=== PATIENT | female | born 1990 | race Caucasian/White ===

== ENCOUNTER 2017-05-23 18:18 | Emergency (ER) | payer OTHER ==
[2017-05-23 18:30] VITALS: BP 133/80; PULSE 80; TEMP 98.4; BMI 37.2
[2017-05-23] MEDS ORDERED: AMOXICILLIN 500 MG CAPSULE (FP) PO ONE (18:45)
--- NOTE | 2017-05-23 18:45 | PDOC ---
History of Present Illness - General Chief Complaint: Ear Problem Stated Complaint: EAR PAIN Time Seen by Provider: 05/23/17 18:38 History Source: Patient Exam Limitations: No Limitations - History of Present Illness Initial Comments: 05/23/17 18:56 27-year-old female with no medical history presents to the emergency department complaining of a right earache since yesterday but denies headache, dizziness, lightheadedness, fever/chills, nausea/vomiting, sore throat, rhinorrhea, difficulty hearing, difficulty swallowing, chest pain, shortness of breath, abdominal pains. Pain is increased with auricular movement and alleviated minimally with Motrin. Timing/Duration: 24 hours Associated Symptoms: reports: denies symptoms Past History - Past Medical History Allergies/Adverse Reactions: Allergies Allergy/AdvReac Type Severity Reaction Status Date / Time No Known Allergies Allergy Verified 05/23/17 18:28 Home Medications: Ambulatory Orders Amoxicillin - [Amoxicillin 875mg Tablet -] 875 mg PO BID #14 tab 05/23/17 Asthma: No Cancer: No Cardiac Disorders: No Diabetes: No HTN: No Seizures: No Thyroid Disease: No Other medical history: denies. - Surgical History Abdominal Surgery: Yes - Reproductive History (#): 3 Para: 2 Therapeutic (s) & number: No Spontaneous : 0 - Immunization History Immunization Up to Date: Yes - Suicide/Smoking/Psychosocial Hx Smoking Status: No Smoking History: Never smoked Have you smoked in the past 12 months: No Number of Cigarettes Smoked Daily: 0 Hx Alcohol Use: No Drug/Substance Use Hx: No Substance Use Type: None Hx Substance Use Treatment: No Review of Systems - Review of Systems Able to Perform ROS?: Yes Comments:: 05/23/17 18:41 CONSTITUTIONAL: Absent: fever, chills, diaphoresis, generalized weakness, malaise, loss of appetite HEENT: right earpain Absent: rhinorrhea, nasal congestion, throat pain, throat swelling, difficulty swallowing, mouth swelling, ear pain, eye pain, visual Changes SKIN: Absent: rash, itching, pallor Is the patient limited German proficient: No *Physical Exam - Vital Signs Last Vital Signs Temp Pulse Resp BP Pulse Ox 98.4 F 80 18 133/80 100 05/23/17 18:29 05/23/17 18:29 05/23/17 18:29 05/23/17 18:29 05/23/17 18:29 - Physical Exam Comments: 05/23/17 18:42 GENERAL: Well developed, well nourished. Awake and alert. No acute distress. HEENT: right: TM bulging/erythema Normocephalic, atraumatic. PERRLA, EOMI. No conjunctival pallor. Sclera are non- icteric. Moist mucous membranes. Oropharynx is clear. NECK: Supple. Full ROM. No JVD. Carotid pulses 2+ and symmetric, without bruits. No thyromegaly. No lymphadenopathy. SKIN: Warm and dry. Normal capillary refill. No rashes. No jaundice. *DC/Admit/Observation/Transfer Diagnosis at time of Disposition: Otitis media Qualifiers: Otitis media type: other nonsuppurative Chronicity: unspecified Laterality: right Qualified Code(s): H65.91 - Unspecified nonsuppurative otitis media, right ear - Discharge Dispostion Disposition: HOME Condition at time of disposition: Stable Admit: No - Prescriptions Prescriptions: Amoxicillin - [Amoxicillin 875mg Tablet -] 875 mg PO BID #14 tab - Referrals Referrals: Gordon Lang MD [Staff Physician] - - Patient Instructions Printed Discharge Instructions: Middle Ear Infection Additional Instructions: Take tylenol/motrin as needed for pain Return to the ER for severe/persistent/worsening symptoms
[2017-05-23] MEDS ORDERED: AMOXICILLIN 250 MG CAPSULE ONE (19:12)
== END 2017-05-23 19:15 | disposition home or self-care (01) ==
LOC: JERFT 18:18
DX: H65.91 Unspecified nonsuppurative otitis media, right ear (principal)
CPT/HCPCS: 99281-25

== ENCOUNTER 2018-12-17 10:30 | Emergency (ER) | payer OTHER ==
[2018-12-17 10:41] VITALS: BP 134/68; PULSE 84; TEMP 98.5; BMI 33.3
[2018-12-17] MEDS ORDERED: KETOROLAC TROMETHAMINE 60 MG/2 ML VIAL IM ONE (10:50)
[2018-12-17] MEDS ORDERED: ACETAMINOPHEN 500 MG TABLET (FP) PO ONE (10:50)
[2018-12-17] MEDS ORDERED: LIDOCAINE 5% TOPICAL PATCH TP ONE (10:50)
--- NOTE | 2018-12-17 10:50 | PDOC ---
History of Present Illness - General Chief Complaint: Back Pain Stated Complaint: BACK PAIN Time Seen by Provider: 12/17/18 10:37 History Source: Patient Exam Limitations: No Limitations Past History - Travel Traveled outside of the country in the last 30 days: No Close contact w/someone who was outside of country & ill: No - Past Medical History Allergies/Adverse Reactions: Allergies Allergy/AdvReac Type Severity Reaction Status Date / Time No Known Allergies Allergy Verified 05/23/17 18:28 Home Medications: Ambulatory Orders Cyclobenzaprine HCl [Flexeril -] 10 mg PO HS #10 tablet 12/17/18 Ibuprofen 800 mg PO TID #30 tablet 12/17/18 Asthma: No Cancer: No Cardiac Disorders: No COPD: No Diabetes: No HTN: No Seizures: No Thyroid Disease: No - Surgical History Abdominal Surgery: Yes - Reproductive History (#): 3 Para: 2 Therapeutic (s) & number: No Spontaneous : 0 - Immunization History Immunization Up to Date: Yes - Suicide/Smoking/Psychosocial Hx Smoking Status: No Smoking History: Unknown if ever smoked Have you smoked in the past 12 months: No Number of Cigarettes Smoked Daily: 0 Information on smoking cessation initiated: No Hx Alcohol Use: No Drug/Substance Use Hx: No Substance Use Type: None Hx Substance Use Treatment: No Review of Systems - Review of Systems Able to Perform ROS?: Yes Comments:: 12/17/18 10:43 CONSTITUTIONAL: Absent: fever, chills, diaphoresis, generalized weakness, malaise, loss of appetite GASTROINTESTINAL: Absent: abdominal pain, abdominal distension, nausea, vomiting, diarrhea, constipation, melena, hematochezia GENITOURINARY: Absent: dysuria, frequency, urgency, hesitancy, hematuria, flank pain, genital pain MUSCULOSKELETAL: Present: low back pain Absent: arthralgia, joint swelling SKIN: Absent: rash, itching, pallor NEUROLOGIC: Absent: headache, focal weakness or paresthesias, dizziness, unsteady gait, seizure, mental status changes, bladder or bowel incontinence PSYCHIATRIC: Absent: anxiety, depression, suicidal or homicidal ideation, hallucinations. Is the patient limited Turkmen proficient: No *Physical Exam - Vital Signs Last Vital Signs Temp Pulse Resp BP Pulse Ox 98.5 F 84 18 134/68 100 12/17/18 10:36 12/17/18 10:36 12/17/18 10:36 12/17/18 10:36 12/17/18 10:36 - Physical Exam Comments: 12/17/18 10:43 GENERAL: Well developed, well nourished. Awake and alert. No acute distress. NECK: Supple. Full ROM. No JVD. Carotid pulses 2+ and symmetric, without bruits. No thyromegaly. No lymphadenopathy. MUSCULOSKELETAL TTP of the b/l paraspinous muscles, L3-S1, with palpable knot consistent with muscle spasm. (+) straight leg raise b/l. (+) midline tenderness -No trauma, or fever. No saddle anesthesia or bladder/bowel incontinence. No CVA tenderness. Normal range of motion at all joints. No bony deformities or tenderness. No CVA tenderness. EXTREMITIES: No cyanosis. No clubbing. No edema. No calf tenderness. SKIN: Warm and dry. Normal capillary refill. No rashes. No jaundice. NEUROLOGICAL: Alert, awake, appropriate. Cranial nerves 2-12 intact. No deficits to light touch and temperature in face, upper extremities and lower extremities. No motor deficits in the in face, upper extremities and lower extremities. Normoreflexic in the upper and lower extremities. Normal speech. Toes are down- going bilaterally. Gait is normal without ataxia. Medical Decision Making - Medical Decision Making 12/17/18 10:53 the patient is a 28-year-old female with no past medical history who presents to the ER today with low back pain for 2 days. Patient states that she woke up with the back pain and it is progressively gotten worse. She states that she is only comfortable when standing. She states that the pain goes down her legs. She is taking Motrin with some relief of her symptoms. Denies heavy lifting or trauma. Patient is currently on her menstrual cycle. Denies fevers , chills, numbness and tingling/weakness to the affected extremities, saddle anesthesia and bladder bowel incontinence. A/P: Low back pain -Pt with TTP of the b/l paraspinous muscles, L3-S1, with palpable knot consistent with muscle spasm. (+) straight leg raise b/l. (+) midline tenderness -No trauma, or fever. No saddle anesthesia or bladder/bowel incontinence. No CVA tenderness. Pt currently on her menustral cycle. Not concerned for at this time -Pt is neurologically intact on exam with no focal findings. -Toradol given with relief of symptoms -DC home. Pt to f/u with her PCP. Ortho referral given. -I discussed the physical exam findings, ancillary test results and final diagnoses with the patient. I answered all of the patient's questions. The patient was satisfied with the care received and felt comfortable with the discharge plan and treatment plan. The Patient agrees to follow up with the primary care physician/specialist within 24-72 hours. Return precautions were given. *DC/Admit/Observation/Transfer Diagnosis at time of Disposition: Low back pain Qualifiers: Chronicity: acute Back pain laterality: bilateral Sciatica presence: without sciatica Qualified Code(s): M54.5 - Low back pain - Discharge Dispostion Disposition: HOME Condition at time of disposition: Stable Decision to Admit order: No - Referrals Referrals: Izzy Marquez [Primary Care Provider] - Lonnie Freedman MD [Staff Physician] - - Patient Instructions Printed Discharge Instructions: DI for Low Back Pain Additional Instructions: You were evaluated for your low back pain today. It is most likely due to a muscle spasm Please take the Motrin as directed Take the Flexiril every 8 hours the first day. Then take the medication at night only. Do not drink or drive after taking this medication as it may make you drowsy. You may apply warm compresses to the area. Please follow up with orthopedics if your symptoms do not improve this week; a referral has been provided to you Return to the ER for worsening pain despite treatment, numbness/weakness down the extremities, changes in the way you walk, numbness/tingling to the groin, if you have bladder/bowel incontinence, or if you have any changes in your symptoms. - Post Discharge Activity Forms/Work/School Notes: Back to Work
[2018-12-17] MEDS ORDERED: KETOROLAC TROMETHAMINE 60 MG/2 ML VIAL ONE (10:53)
[2018-12-17] MEDS ORDERED: LIDOCAINE 5% TOPICAL PATCH ONE (10:53)
[2018-12-17] MEDS ORDERED: ACETAMINOPHEN 500 MG TABLET (FP) ONE (10:54)
[2018-12-17] MEDS ORDERED: LIDOCAINE PATCH REMOVAL MC SCH (22:00)
== END 2018-12-17 11:39 | disposition home or self-care (01) ==
LOC: JERFT 10:30
PROC: 3E0233Z Introduction of Anti-inflammatory into Muscle, Percutaneous Approach (ICD-10-PCS; principal; 2018-12-17)
DX: M54.5 Low back pain (principal); M62.830 Muscle spasm of back
CPT/HCPCS: 99281-25

== ENCOUNTER 2019-01-17 00:41 | Emergency (ER) | payer OTHER ==
[2019-01-17 01:08] VITALS: TEMP 97.8; BMI 35.4
--- NOTE | 2019-01-17 01:27 | PDOC ---
History of Present Illness <Lilia Whitman - Last Filed: 01/17/19 04:01> <Alka Lara - Last Filed: 01/17/19 08:05> - General Chief Complaint: Back Pain Stated Complaint: LOWER BACK PAIN AND BLOOD IN URINE Time Seen by Provider: 01/17/19 01:26 Past History <Lilia Whitman - Last Filed: 01/17/19 04:01> - Past Medical History Asthma: No Cancer: No Cardiac Disorders: No COPD: No Diabetes: No HTN: No Seizures: No Thyroid Disease: No - Surgical History Abdominal Surgery: Yes - Reproductive History (#): 3 Para: 2 Therapeutic (s) & number: No Spontaneous : 0 - Immunization History Immunization Up to Date: Yes - Suicide/Smoking/Psychosocial Hx Smoking Status: No Smoking History: Never smoked Have you smoked in the past 12 months: No Number of Cigarettes Smoked Daily: 0 Information on smoking cessation initiated: No Hx Alcohol Use: No Drug/Substance Use Hx: No Substance Use Type: None Hx Substance Use Treatment: No <Alka Lara - Last Filed: 01/17/19 08:05> - Past Medical History Allergies/Adverse Reactions: Allergies Allergy/AdvReac Type Severity Reaction Status Date / Time No Known Allergies Allergy Verified 01/17/19 01:08 Home Medications: Ambulatory Orders Cyclobenzaprine HCl [Flexeril -] 10 mg PO HS #10 tablet 12/17/18 Ibuprofen 800 mg PO TID #30 tablet 12/17/18 *Physical Exam - Vital Signs Last Vital Signs Temp Pulse Resp BP Pulse Ox 97.8 F 72 16 125/68 97 01/17/19 00:41 01/17/19 03:05 01/17/19 03:05 01/17/19 03:05 01/17/19 03:05 <Lilia Whitman - Last Filed: 01/17/19 04:01> - Vital Signs Last Vital Signs Temp Pulse Resp BP Pulse Ox 97.8 F 98 H 19 126/79 100 01/17/19 00:41 01/17/19 00:41 01/17/19 00:41 01/17/19 00:41 01/17/19 00:41 <Alka Lara - Last Filed: 01/17/19 08:05> ED Treatment Course - LABORATORY CBC & Chemistry Diagram: 01/17/19 02:05 01/17/19 02:05 - ADDITIONAL ORDERS Additional order review: Laboratory Results 01/17/19 01/17/19 01/17/19 02:09 02:05 02:05 Sodium 141 Potassium 4.1 Chloride 106 Carbon Dioxide 28 Anion Gap 8 BUN 14.5 Creatinine 1.1 Est GFR (CKD-EPI)AfAm 78.57 Est GFR (CKD-EPI)NonAf 67.79 Random Glucose 96 Calcium 9.1 Total Bilirubin 0.1 L AST 21 ALT 21 Alkaline Phosphatase 75 Total Protein 8.0 Albumin 3.9 Lipase 118 Urine Color Yellow Urine Appearance Clear Urine pH 7.0 Ur Specific Dickens 1.022 Urine Protein Negative Urine Glucose (UA) Negative Urine Ketones Negative Urine Blood Trace Urine Nitrite Negative Urine Bilirubin Negative Urine Urobilinogen 0.2 Ur Leukocyte Esterase Trace Urine WBC (Auto) 2 Urine RBC (Auto) 2 Urine Casts (Auto) 2 U Epithel Cells (Auto) 1.0 Urine Bacteria (Auto) 38.1 Urine HCG, Qual Negative Stool Occult Blood Negative 01/17/19 02:05 RBC 4.56 MCV 83.3 MCHC 33.2 RDW 15.0 MPV 7.7 Neutrophils % 57.3 Lymphocytes % 33.4 Monocytes % 7.3 Eosinophils % 1.0 Basophils % 1.0 - Medications Given in the ED: ED Medications Discontinued Medications Generic Name Dose Route Start Last Admin Trade Name Freq PRN Reason Stop Dose Admin Acetaminophen 1,000 mg 01/17/19 01:58 01/17/19 02:32 Ofirmev Injection - IVPB 01/17/19 01:59 1,000 mg ONCE ONE Administration Sodium Chloride 1,000 mls @ 1,000 mls/hr 01/17/19 01:58 01/17/19 02:25 Normal Saline - IV 01/17/19 02:57 1,000 mls/hr ASDIR STA Administration Ondansetron HCl 4 mg 01/17/19 01:58 01/17/19 02:25 Zofran Injection IVPUSH 01/17/19 01:59 4 mg ONCE ONE Administration <Lilia Whitman - Last Filed: 01/17/19 04:01> - LABORATORY CBC & Chemistry Diagram: 01/17/19 02:05 01/17/19 02:05 <Alka Lara - Last Filed: 01/17/19 08:05> Medical Decision Making - Medical Decision Making 28yo F with PMH of R. ovarian cyst presenting with multiple complaints including dysuria, hematuria, black stool, blood in her stool, abdominal pain, R. flank pain, and dizziness. Patient has had intermittent dysuria and hematuria over the past several months. History of two c-sections Had three bowel movements today Never had a colonoscopy. Abdominal pain x 1 week is described as "sharp" and rated 8/10. R. flank pain is rated 10/10; patient has had this pain for years but it is worse now. Last saw her shuttler car a year ago No fevers, chills, chest pain, or shortness of breath PCP: Dr. Marquez Labs 1L NS for tachycardia, 4mg zofran for nausea, 1g Ofirmev for pain 01/17/19 02:17 Patient feeling better 01/17/19 04:08 01/17/19 08:04 <Alka Lara - Last Filed: 01/17/19 08:05> *DC/Admit/Observation/Transfer - Discharge Dispostion Decision to Admit order: No <Lilia Whitman - Last Filed: 01/17/19 04:01> <Alka Lara - Last Filed: 01/17/19 08:05> Diagnosis at time of Disposition: Irregular menses Abdominal pain Qualifiers: Abdominal location: right lower quadrant Qualified Code(s): R10.31 - Right lower quadrant pain - Discharge Dispostion Disposition: HOME Condition at time of disposition: Stable - Referrals Referrals: Izzy Marquez [Primary Care Provider] - Ash Lucas MD [Staff Physician] - - Patient Instructions Printed Discharge Instructions: DI for Abdominal Pain-Adult Additional Instructions: You came into the ED for abdominal pain, pain when you urinate, hematuria, and flank pain. Labs were within normal limits. Follow-up with your shuttler car specialist and primary care doctor this week to discuss this ED visit and to further evaluate your symptoms. Call on Friday and make appointments. Your workup is not complete until you do so. You can take [id number] tylenol or motrin for pain. Follow the instructions on the medication bottle. Immediate medical attention is required if you have: you develop worsening pain , high fevers, persistent nausea, vomiting, or any new or concerning symptoms. If you think you are having an emergency, call for emergency medical services or present to the emergency department right away. Print Language: MAORI - Post Discharge Activity
[2019-01-17] MEDS ORDERED: ACETAMINOPHEN 1000 MG/100 ML VIAL (NON FORMULARY) IVPB ONE (01:58)
[2019-01-17] MEDS ORDERED: ONDANSETRON 4 MG/2 ML VIAL IVPUSH ONE (01:58)
[2019-01-17] MEDS ORDERED: SODIUM CHLORIDE 1,000 ML IV STA (01:58)
--- NOTE | 2019-01-17 02:13 | PDOC ---
Attending Attestation - Resident Resident Name: JaneAlka - ED Attending Attestation I have performed the following: I have examined & evaluated the patient, The case was reviewed & discussed with the resident, I agree w/resident's findings & plan - HPI HPI: 01/17/19 04:03 Pt comes with abdominal pain x 1 week and nausea. States that she has decreased appetite, but that she is able to eat. Pt has no vomiting. Pt has no PMHx. other than M1. Since the miscarriage 2015, her menses has been irreg. Pt states that she notes bklood in her stool. She wants full eval. Vitals normal and she appears well. - Physicial Exam PE: 01/17/19 03:59 Agree with resident exam - Medical Decision Making 01/17/19 03:59 Pt has normal exam. Normal WBC and Chem and normal UA (trace blood only) and guaiac negative stool. She is stable and feeling better. 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
[2019-01-17] MEDS ORDERED: ONDANSETRON 4 MG/2 ML VIAL ONE (02:20)
[2019-01-17] MEDS ORDERED: ACETAMINOPHEN INJECTION 100 ML IVPB ONE (02:20)
[2019-01-17 02:30] LABS: HEMOGLOBIN 12.6 GM/dL (10.7-15.3); LYMPH % 33.4 % (8-40); MCH 27.7 pg (25.7-33.7); MCHC 33.2 g/dl (32.0-36.0); MEAN CELL VOLUME 83.3 fl (80-96); MEAN PLT VOLUME 7.7 fl (7.5-11.1); MONO % 7.3 % (3.8-10.2); NEUT % 57.3 % (42.8-82.8); PLATELET COUNT 347 K/MM3 (134-434); RBC 4.56 M/mm3 (3.60-5.2)
[2019-01-17 02:31] LABS: HCG,QUALITATIVE URINE Negative
[2019-01-17 02:47] LABS: HYALINE CASTS 2 /lpf (0-8); URINE APPEARANCE CLEAR; URINE BACTERIA 38.1 /hpf (NEGATIVE); URINE BILIRUBIN NEGATIVE (NEGATIVE); URINE COLOR YELLOW; URINE GLUCOSE (UA) NEGATIVE (NEGATIVE); URINE KETONE NEGATIVE (NEGATIVE); URINE LEUK ESTERASE TRACE (NEGATIVE); URINE NITRITE NEGATIVE (NEGATIVE); URINE PROTEIN NEGATIVE (NEGATIVE); URINE RBC 2 /hpf (0-4); URINE UROBILINOGEN 0.2 mg/dL (0.2-1.0); URINE WBC 2 /hpf (0-5)
[2019-01-17 03:00] LABS: ALBUMIN 3.9 g/dl (3.4-5.0); BILIRUBIN,TOTAL 0.1 mg/dL (0.2-1); BLOOD UREA NITROGEN 14.5 mg/dL (7-18); CALCIUM 9.1 mg/dL (8.5-10.1); CREATININE 1.1 mg/dL (0.55-1.3); POTASSIUM 4.1 mmol/L (3.5-5.1)
[2019-01-17 04:24] VITALS: BP 120/66; PULSE 66
== END 2019-01-17 04:24 | disposition home or self-care (01) ==
LOC: JER 00:41
PROC: 3E033GC Introduction of Other Therapeutic Substance into Peripheral Vein, Percutaneous Approach (ICD-10-PCS; principal; 2019-01-17)
PROC: 3E033NZ Introduction of Analgesics, Hypnotics, Sedatives into Peripheral Vein, Percutaneous Approach (ICD-10-PCS; 2019-01-17)
DX: N92.5 Other specified irregular menstruation (principal)
CPT/HCPCS: 36415; 80053; 81003; 82272; 83690; 84703; 85025; 87086; 96374; 96375; 99282-25; J0131; J7030

== ENCOUNTER 2019-09-02 22:02 | Emergency (ER) | payer OTHER ==
[2019-09-02 22:11] VITALS: BP 141/86; PULSE 75; TEMP 97.8; BMI 35.2
--- NOTE | 2019-09-02 22:53 | PDOC ---
History of Present Illness - General Chief Complaint: Vaginal Bleeding Stated Complaint: VAGINAL BLEEDING Time Seen by Provider: 09/02/19 22:52 History Source: Patient Exam Limitations: No Limitations - History of Present Illness Initial Comments: 09/02/19 22:52 Violetta Kirkpatrick is a 29F with PMH 3-5 ovarian cysts, 2x , miscarriage presenting with vaginal bleeding. Patient reports that she got a Mirena placed on 08/18/19, and since then has been having vaginal bleeding and crampy abdominal pain, 4-5 pads per day of bleeding, constant. Says she feels dizzy but denies chest pain, SOB, palpitations, vision changes. LMP ended on 08/13/19, normally regular. Has gotten IUD placed before, got despite this in 2012. Has 2 children by C -section in 2011 and 2012, one miscarriage. Last sexual activity on 08/13/19, no dyspareunia noted at that time, no contraception used, unsure if now. Also complaining of blood in urine, denies that it is coming vaginally. Past History - Past Medical History Allergies/Adverse Reactions: Allergies Allergy/AdvReac Type Severity Reaction Status Date / Time No Known Allergies Allergy Verified 09/02/19 22:09 Home Medications: Ambulatory Orders Cyclobenzaprine HCl [Flexeril -] 10 mg PO HS #10 tablet 12/17/18 Ibuprofen 800 mg PO TID #30 tablet 12/17/18 Asthma: No Cancer: No Cardiac Disorders: No COPD: No Diabetes: No HTN: No Seizures: No Thyroid Disease: No - Surgical History Abdominal Surgery: Yes - Reproductive History (#): 3 Para: 2 Therapeutic (s) & number: No Spontaneous : 0 - Immunization History Immunization Up to Date: Yes - Psycho Social/Smoking Cessation Hx Smoking Status: No Smoking History: Never smoked Have you smoked in the past 12 months: No Number of Cigarettes Smoked Daily: 0 Hx Alcohol Use: No Drug/Substance Use Hx: No Substance Use Type: None Hx Substance Use Treatment: No Review of Systems - Review of Systems Able to Perform ROS?: Yes Constitutional: No: Chills, Fever HEENTM: No: Symptoms Reported Respiratory: No: Cough, Shortness of Breath Cardiac (ROS): No: Chest Pain, Edema, Irregular Heart Rate, Lightheadedness, Syncope, Chest Tightness ABD/GI: Yes: Nausea, Vomiting. No: Constipated, Diarrhea : Yes: Hematuria Musculoskeletal: No: Symptoms Reported Integumentary: No: Symptoms Reported Neurological: No: Symptoms reported Endocrine: No: Symptoms Reported Hematologic/Lymphatic: No: Symptoms Reported All Other Systems: Reviewed and Negative *Physical Exam - Vital Signs Last Vital Signs Temp Pulse Resp BP Pulse Ox 97.8 F 75 16 141/86 98 09/02/19 22:09 09/02/19 22:09 09/02/19 22:09 09/02/19 22:09 09/02/19 22:09 - Physical Exam General Appearance: Yes: Nourished, Appropriately Dressed, Mild Distress, Obese HEENT: positive: EOMI, LOC, Normal Voice, Symmetrical, Pharynx Normal, Hearing Grossly Normal. negative: Scleral Icterus (R), Scleral Icterus (L), Pharyngeal Erythema, Tonsillar Exudate, Tonsillar Erythema Neck: positive: Trachea midline, Normal Thyroid, Supple. negative: Tender, Lymphadenopathy (R), Lymphadenopathy (L) Respiratory/Chest: positive: Lungs Clear, Normal Breath Sounds. negative: Chest Tender, Respiratory Distress, Accessory Muscle Use, Crackles, Rales, Rhonchi, Stridor, Wheezing, Hyperresonant Cardiovascular: positive: Regular Rhythm, Regular Rate. negative: Edema Female Pelvic Exam: positive: normal external exam, cervical os closed, normal adnexa, CMT, vaginal bleeding. negative: discharge, adnexal tenderness Gastrointestinal/Abdominal: positive: Normal Bowel Sounds, Tender (epigastric, LLQ), Flat, Soft. negative: Organomegaly, Guarding, Rebound, Tenderness, Hernia , Mass Musculoskeletal: positive: Normal Inspection. negative: CVA Tenderness Extremity: positive: Normal Capillary Refill, Normal Inspection, Normal Range of Motion, Pelvis Stable. negative: Tender Integumentary: positive: Normal Color, Dry, Warm. negative: Pale, Cold, Clammy Neurologic: positive: Fully Oriented, Alert, Normal Mood/Affect, Normal Response , Motor Strength 5/5, Other (gait normal) ED Treatment Course - LABORATORY CBC & Chemistry Diagram: 09/03/19 01:17 09/03/19 01:17 Medical Decision Making - Medical Decision Making 09/03/19 00:04 Patient presents with daily vaginal bleeding in the setting of recent IUD placement, has had IUD failures in the past. Also has known ovarian cysts. Ddx includes IUD misplacement, ectopic , hemorrhagic ovarian cyst. Pelvic exam reveals ~10cc blood in vaginal vault with CMT, unable to visualize os but closed on digital exam and strings palpated. - UA/UC/Upreg for eval urine and - TVUS to evaluate placement of IUD - CMP/CBC/Coags for evaluation of bleeding and lytes 09/03/19 00:07 Labs notable for: - UA grossly pink, blood and LE+ - Upreg negative - CBC WNL, no anemia - CMP WNL 09/03/19 02:13 US shows IUD appropriately placed, no fibroids, no cysts. Vaginal bleeding likely caused by IUD hormonal treatment itself, no misalignment of IUD, no other PROCEDURES RN causes of bleeding, not , no ectopic risk. Has UTI on UA, will treat with Keflex outpatient. Hgb 12.6, has been bleeding for 2 weeks, no significant bleeding. Stable to be discharged home with OBGYN f/u and Keflex. Discharge - Discharge Information Problems reviewed: Yes Clinical Impression/Diagnosis: Vaginal bleeding UTI (urinary tract infection) Qualifiers: Urinary tract infection type: acute cystitis Hematuria presence: with hematuria Qualified Code(s): N30.01 - Acute cystitis with hematuria Condition: Stable Disposition: HOME - Admission No - Follow up/Referral Referrals: Yifan Hatfield MD [Primary Care Provider] - - Patient Discharge Instructions Patient Printed Discharge Instructions: DI for Urinary Tract Infection (UTI) Additional Instructions: Today you were evaluated for vaginal bleeding. We have evaluated your IUD, and it is in the correct place. You blood shows that you are not anemic, your blood loss is not significant enough to need a transfusion. Your bleeding is likely being caused by your IUD itself, and you should discuss this with your OBGYN who placed this. If you experience worsening abdominal pain, dizziness, worse bleeding such as soaking more than 6 pads per day, or any other new or concerning symptoms, please return to the emergency room. - Post Discharge Activity
[2019-09-02 23:50] LABS: HYALINE CASTS 0 /lpf (0-8); PH,URINE 6.5 (5.0-8.0); URINE APPEARANCE CLOUDY; URINE BACTERIA 21.3 /hpf (NEGATIVE); URINE BILIRUBIN NEGATIVE (NEGATIVE); URINE COLOR RED; URINE GLUCOSE (UA) NEGATIVE (NEGATIVE); URINE KETONE NEGATIVE (NEGATIVE); URINE LEUK ESTERASE 2+ (NEGATIVE); URINE NITRITE NEGATIVE (NEGATIVE); URINE PROTEIN 2+ (NEGATIVE); URINE RBC 149 /hpf (0-4); URINE UROBILINOGEN 0.2 mg/dL (0.2-1.0); URINE WBC 16 /hpf (0-5)
--- NOTE | 2019-09-03 00:02 | PDOC ---
Documentation entered by Yifan Michelle SCRIBE, acting as scribe for Julia Ruano DO. Julia Ruano DO: This documentation has been prepared by the Miguel Angel dangelo Daniel, SCRIBE, under my direction and personally reviewed by me in its entirety. I confirm that the documentation accurately reflects all work, treatment, procedures, and medical decision making performed by me. Attending Attestation - Resident Resident Name: TahirForrest - ED Attending Attestation I have performed the following: I have examined & evaluated the patient, The case was reviewed & discussed with the resident, I agree w/resident's findings & plan, Exceptions are as noted - HPI HPI: 09/02/19 23:56 The patient is a 29 year old female with a past medical history of 3-5 ovarian cysts and x2 here today for evaluation of vaginal bleeding. The patient reports that she had a mirena placed on 08/18/2019 and has since had vaginal bleeding and crampy abdominal pain. She states that she goes through 4- 5 pads a day and that her bleeding is constant. She also notes associated dizziness. Patient denies headache. Denies fever, chills. Denies chest pain, shortness of breath. Denies nausea, vomiting, diarrhea. Allergies: NKA PCP: Yifan Hatfield - Physicial Exam PE: 09/02/19 23:57 Constitutional: Awake, alert, oriented. No acute distress. Head: Normocephalic. Atraumatic Eyes: PERRL. EOMI. Conjunctivae are not pale. ENT: Mucous membranes are moist and intact. Posterior pharynx without exudates or erythema. Uvula midline. Neck: Supple. Full ROM. No lymphadenopathy. Cardiovascular: Regular rate. Regular rhythm. S1, S2 regular. Distal pulses are 2+ and symmetric. Pulmonary/Chest: No evidence of respiratory distress. Clear to auscultation bilaterally No wheezing, rales or rhonchi. Abdominal: +left pelvic tenderness. Soft and non-distended. No rebound, guarding or rigidity. No organomegaly. No palpable masses. Good bowel sounds. Back: No CVA tenderness. Musculoskeletal: Ambualtes with a steady gait. No edema. No cyanosis. No clubbing. Full range of motion in all extremities. No calf tenderness. Radial/ pedal pulses are intact and 2+ bilaterally Skin: Skin is warm and dry. No petechiae. No purpura. Neurological: Alert and oriented to person, place, and time. Cranial nerves II -XII are grossly intact. Normal speech. Strength is grossly symmetric. No sensory deficits. Psychiatric: Good eye contact. Normal interaction, affect and behavior. - Medical Decision Making 09/02/19 23:59 a/p: 29yo female with vag bleeding x 2 weeks after an IUD was placed -using 8-10 tampons a day -pt c/o L pelvic pain/cramping -pt denies n/v/d -no new sexual partners -pt denies abd distension -no cp/sob -states intermittent lightheaded sensation -will send labs, tvus -will monitor and reassess -pt states she has an appt with MINE MANAGER for Sep 07 09/03/19 01:11 ua shows uti labs pending 09/03/19 02:06 pt pending labs and ultrasound if labs are stable and ultrasound shows iud in place pt will be able to dc to home and follow up with her MINE MANAGER
[2019-09-03 01:31] LABS: BASO % 0.6 % (0-2.0); EOS % 2.3 % (0-4.5); HEMATOCRIT 37.2 % (32.4-45.2); HEMOGLOBIN 12.6 GM/dL (10.7-15.3); LYMPH % 37.2 % (8-40); MCH 28.5 pg (25.7-33.7); MEAN CELL VOLUME 83.9 fl (80-96); MONO % 7.6 % (3.8-10.2); NEUT % 52.3 % (42.8-82.8); PLATELET COUNT 329 K/MM3 (134-434); RBC 4.44 M/mm3 (3.60-5.2); RDW 13.8 % (11.6-15.6); WHITE BLOOD COUNT 7.9 K/mm3 (4.0-10.0)
[2019-09-03 02:10] LABS: ALBUMIN 3.6 g/dl (3.4-5.0); BILIRUBIN,TOTAL 0.2 mg/dL (0.2-1); CALCIUM 8.9 mg/dL (8.5-10.1); CREATININE 0.8 mg/dL (0.55-1.3); POTASSIUM 4.1 mmol/L (3.5-5.1); TOT PROT 7.9 g/dl (6.4-8.2)
[2019-09-03] MEDS ORDERED: CEPHALEXIN MONOHYDRATE 500 MG CAPSULE (UD) PO ONE (02:21)
[2019-09-03] MEDS ORDERED: IBUPROFEN 400 MG TABLET (FP) PO ONE (02:24)
[2019-09-03 02:34] LABS: INR 1.04 (0.83-1.09); PROTHROMBIN TIME (PATIENT) 12.3 SEC (9.7-13.0)
[2019-09-03] MEDS ORDERED: CEPHALEXIN MONOHYDRATE 500 MG CAPSULE (UD) ONE (02:36)
[2019-09-03 02:37] LABS: ACTIVATED PTT 34.1 SECONDS (25.2-36.5)
[2019-09-03] MEDS ORDERED: IBUPROFEN 600 MG TABLET (FP) PO ONE ×2 (02:37→02:43)
== END 2019-09-03 02:45 | disposition home or self-care (01) ==
LOC: JER 22:02
DX: N30.01 Acute cystitis with hematuria (principal); N93.8 Other specified abnormal uterine and vaginal bleeding; Z97.5 Presence of (intrauterine) contraceptive device
CPT/HCPCS: 36415; 76830-TC; 80053; 81003; 84703; 85025; 85610; 85730; 87086; 99281-25

== ENCOUNTER 2020-02-24 17:32 | Emergency (ER) | payer OTHER ==
--- NOTE | 2020-02-24 17:54 | PDOC ---
Rapid Medical Evaluation Time Seen by Provider: 02/24/20 17:35 Medical Evaluation: Allergies Allergy/AdvReac Type Severity Reaction Status Date / Time No Known Allergies Allergy Verified 09/02/19 22:09 02/24/20 17:52 29 year old female no pmhx with lower abdominal pain x 1 hour, no N/V/D. Missed several BC pills, recent vaginal bleeding that has now resolved. Pain described as crampy. No dysuria, no discharge PE: Mildly ttp to lower abdomen Plan UA UC GC Labs Pt to precede to ED for further treatment and care
[2020-02-24 17:55] VITALS: BMI 36.0
[2020-02-24 18:43] LABS: BASO % 0.5 % (0-2.0); EOS % 1.3 % (0-4.5); HEMATOCRIT 38.2 % (32.4-45.2); HEMOGLOBIN 12.9 GM/dL (10.7-15.3); LYMPH % 30.6 % (8-40); MCH 29.3 pg (25.7-33.7); MCHC 33.7 g/dl (32.0-36.0); MEAN CELL VOLUME 86.8 fl (80-96); MEAN PLT VOLUME 8.4 fl (7.5-11.1); MONO % 6.7 % (3.8-10.2); NEUT % 60.9 % (42.8-82.8); PLATELET COUNT 296 K/MM3 (134-434); RBC 4.41 M/mm3 (3.60-5.2); RDW 13.9 % (11.6-15.6); WHITE BLOOD COUNT 8.8 K/mm3 (4.0-10.0)
[2020-02-24 18:52] LABS: INR 0.93 (0.83-1.09); PH,URINE 6.5 (5.0-8.0); URINE APPEARANCE CLEAR; URINE BILIRUBIN NEGATIVE (NEGATIVE); URINE COLOR YELLOW; URINE GLUCOSE (UA) NEGATIVE (NEGATIVE); URINE KETONE NEGATIVE (NEGATIVE); URINE LEUK ESTERASE NEGATIVE (NEGATIVE); URINE NITRITE NEGATIVE (NEGATIVE); URINE PROTEIN NEGATIVE (NEGATIVE)
[2020-02-24 19:27] LABS: ALBUMIN 3.3 g/dl (3.4-5.0); ALK PHOS 62 U/L (45-117); ANION GAP 8 MMOL/L (8-16); BILIRUBIN,TOTAL 0.2 mg/dL (0.2-1); BLOOD UREA NITROGEN 9.5 mg/dL (7-18); CALCIUM 8.8 mg/dL (8.5-10.1); CHLORIDE 104 mmol/L (98-107); CO2 26 mmol/L (21-32); CREATININE 0.8 mg/dL (0.55-1.3); GLUCOSE,RANDOM 123 mg/dL (74-106); POTASSIUM 4.2 mmol/L (3.5-5.1); SGOT/AST 95 U/L (15-37); SGPT/ALT 85 U/L (13-61); SODIUM 138 mmol/L (136-145); TOT PROT 7.6 g/dl (6.4-8.2)
[2020-02-24] MEDS ORDERED: IBUPROFEN 400 MG TABLET (FP) PO ONE ×2 (20:05→20:12)
[2020-02-24] MEDS ORDERED: AZITHROMYCIN 500 MG TABLET PO ONE (20:05)
--- NOTE | 2020-02-24 20:05 | PDOC ---
History of Present Illness - General Chief Complaint: Pain Stated Complaint: ABD PAIN Time Seen by Provider: 02/24/20 17:35 History Source: Patient Exam Limitations: No Limitations Past History - Travel History Traveled outside of the country in the last 30 days: No Close contact w/someone who was outside of country & ill: No - Medical History Allergies/Adverse Reactions: Allergies Allergy/AdvReac Type Severity Reaction Status Date / Time No Known Allergies Allergy Verified 09/02/19 22:09 Home Medications: Ambulatory Orders Cyclobenzaprine HCl [Flexeril -] 10 mg PO HS #10 tablet 12/17/18 Ibuprofen 800 mg PO TID #30 tablet 12/17/18 Cephalexin Monohydrate [Keflex -] 500 mg PO Q6H 7 Days #28 capsule 09/03/19 Doxycycline Hyclate 100 mg PO BID #28 tablet 02/24/20 Ibuprofen 600 mg PO Q6H #30 tablet 02/24/20 Asthma: No Cancer: No Cardiac Disorders: No COPD: No Diabetes: No HTN: No Hypercholesterolemia: Yes Seizures: No Thyroid Disease: No - Surgical History Abdominal Surgery: Yes - Reproductive History (#): 3 Para: 2 Therapeutic (s) & number: No Spontaneous : 0 - Immunization History Immunization Up to Date: Yes - Psycho-Social/Smoking History Smoking Status: No Smoking History: Never smoked Have you smoked in the past 12 months: No Number of Cigarettes Smoked Daily: 0 Information on smoking cessation initiated: No - Substance Abuse Hx (Audit-C & DAST Scrn) How often the patient has a drink containing alcohol: Never Score: In Men: 4 or > Positive; In Women: 3 or > Positive: 0 Screen Result (Pos requires Nsg. Audit-10AR): Negative In the last yr the pt used illegal drug/Rx for NonMed reason: No Score: Yes response is considered Positive: 0 Screen Result (Positive result requires Nsg. DAST-10): Negative Review of Systems - Review of Systems Able to Perform ROS?: Yes Comments:: 02/24/20 20:40 CONSTITUTIONAL: Absent: fever, chills, diaphoresis, generalized weakness, malaise, loss of appetite HEENT: Absent: rhinorrhea, nasal congestion, throat pain, throat swelling, difficulty swallowing, mouth swelling, ear pain, eye pain, visual Changes CARDIOVASCULAR: Absent: chest pain, loss of consciousness, palpitations, irregular heart rate, peripheral edema RESPIRATORY: Absent: cough, shortness of breath, dyspnea with exertion, orthopnea, wheezing, stridor, hemoptysis GASTROINTESTINAL: Absent: abdominal pain, abdominal distension, nausea, vomiting, diarrhea, constipation, melena, hematochezia GENITOURINARY: Present: Pelvic pain absent: dysuria, frequency, urgency, hesitancy, hematuria, flank pain MUSCULOSKELETAL: Absent: myalgia, arthralgia, joint swelling SKIN: Absent: rash, itching, pallor HEMATOLOGIC/IMMUNOLOGIC: Absent: easy bleeding, easy bruising, lymphadenopathy, frequent infections ENDOCRINE: Absent: unexplained weight gain, unexplained weight loss, heat intolerance, cold intolerance NEUROLOGIC: Absent: headache, focal weakness or paresthesias, dizziness, unsteady gait, seizure, mental status changes, bladder or bowel incontinence PSYCHIATRIC: Absent: anxiety, depression, suicidal or homicidal ideation, hallucinations. Is the patient limited Ukrainian proficient: No *Physical Exam - Vital Signs Last Vital Signs Temp Pulse Resp BP Pulse Ox 98.5 F 78 17 138/95 99 02/24/20 17:52 02/24/20 17:52 02/24/20 17:52 02/24/20 17:52 02/24/20 17:52 - Physical Exam 02/24/20 20:40 GENERAL: Well developed, well nourished. Awake and alert. No acute distress. HEENT: Normocephalic, atraumatic. PERRLA, EOMI. No conjunctival pallor. Sclera are non- icteric. Moist mucous membranes. Oropharynx is clear. NECK: Supple. Full ROM. CARDIOVASCULAR: Regular rate and rhythm. No murmurs, rubs, or gallops. Distal pulses are 2+ and symmetric. PULMONARY: No evidence of respiratory distress. Lungs clear to auscultation bilaterally. No wheezing, rales or rhonchi. ABDOMINAL: Soft. Non-tender. Non-distended. No rebound or guarding. No organomegaly. Normoactive bowel sounds. Pelvic: External genitalia normal without lesions. Vaginal vault is with thick white discharge. Cervix is long and closed. (+) cervical motion tenderness. Uterus is nontender and normal in size. Adnexa are nontender and without masses.: MUSCULOSKELETAL Normal range of motion at all joints. No bony deformities or tenderness. No CVA tenderness. EXTREMITIES: No cyanosis. No clubbing. No edema. No calf tenderness. SKIN: Warm and dry. Normal capillary refill. No rashes. No jaundice. NEUROLOGICAL: Alert, awake, appropriate. Cranial nerves 2-12 intact. No deficits to light touch and temperature in face, upper extremities and lower extremities. No motor deficits in the in face, upper extremities and lower extremities. Normoreflexic in the upper and lower extremities. Normal speech. Toes are down-going bilaterally. Gait is normal without ataxia. PSYCHIATRIC: Cooperative. Good eye contact. Appropriate mood and affect. ED Treatment Course - LABORATORY CBC & Chemistry Diagram: 02/24/20 18:15 02/24/20 18:15 - ADDITIONAL ORDERS Additional order review: Laboratory Results 02/24/20 02/24/20 02/24/20 18:15 18:15 18:15 PT with INR 11.00 INR 0.93 Sodium 138 Potassium 4.2 Chloride 104 Carbon Dioxide 26 Anion Gap 8 BUN 9.5 Creatinine 0.8 Est GFR (CKD-EPI)AfAm 114.66 Est GFR (CKD-EPI)NonAf 98.93 Random Glucose 123 H Calcium 8.8 Total Bilirubin 0.2 AST 95 H ALT 85 H Alkaline Phosphatase 62 Total Protein 7.6 Albumin 3.3 L Beta HCG, Quant < 1.0 Urine Color Yellow Urine Appearance Clear Urine pH 6.5 Ur Specific [place] 1.010 Urine Protein Negative Urine Glucose (UA) Negative Urine Ketones Negative Urine Blood Negative Urine Nitrite Negative Urine Bilirubin Negative Urine Urobilinogen 1.0 Ur Leukocyte Esterase Negative Blood Type Antibody Screen 02/24/20 18:15 PT with INR INR Sodium Potassium Chloride Carbon Dioxide Anion Gap BUN Creatinine Est GFR (CKD-EPI)AfAm Est GFR (CKD-EPI)NonAf Random Glucose Calcium Total Bilirubin AST ALT Alkaline Phosphatase Total Protein Albumin Beta HCG, Quant Urine Color Urine Appearance Urine pH Ur Specific [place] Urine Protein Urine Glucose (UA) Urine Ketones Urine Blood Urine Nitrite Urine Bilirubin Urine Urobilinogen Ur Leukocyte Esterase Blood Type AB POSITIVE Antibody Screen Negative 02/24/20 18:15 RBC 4.41 MCV 86.8 MCHC 33.7 RDW 13.9 MPV 8.4 Neutrophils % 60.9 Lymphocytes % 30.6 Monocytes % 6.7 Eosinophils % 1.3 Basophils % 0.5 Medical Decision Making - Medical Decision Making 02/24/20 20:40 Patient is a 29-year-old female no past medical history, presents to the ER for pelvic pain for 1 day. She states that she has had recent unprotected sex with a new partner starting 1 month ago. She states that she has had thick white discharge. She notes that the pain is mostly in her vaginal canal and moves up into her abdomen. Denies dysuria, hematuria, nausea, vomiting, diarrhea. A/P: PID On exam patient has CMT on the pelvic exam. Thick white discharge noted. Basic labs, urine sent from [facility]. No acute findings. Transvaginal ultrasound shows a right ovarian cyst proximally 2 cm x 2 cm. Given physical exam findings suspect PID. We will treat empirically with azithromycin and ceftriaxone. Patient placed on 2 weeks of doxy Discharge home with OB follow-up I discussed the physical exam findings, ancillary test results and final diagno ses with the patient. I answered all of the patient's questions. The patient was satisfied with the care received and felt comfortable with the discharge plan and treatment plan. The Patient agrees to follow up with the primary care physician/specialist within 24-72 hours. Return precautions were given. Discharge - Discharge Information Problems reviewed: Yes Clinical Impression/Diagnosis: PID (acute pelvic inflammatory disease) Condition: Stable Disposition: HOME - Admission No - Additional Discharge Information Prescriptions: Doxycycline Hyclate 100 mg PO BID #28 tablet Ibuprofen 600 mg PO Q6H #30 tablet - Follow up/Referral Referrals: Patric Chopra MD [Staff Physician] - - Patient Discharge Instructions Patient Printed Discharge Instructions: DI for Pelvic Inflammatory Disease, DI for Ovarian Cyst Additional Instructions: You were seen today for your pelvic pain Its most likely caused by an STD. You also have an ovarian cyst. Please take Motrin 600 mg every 6 hours as needed for pain You were treated empirically with antibiotics in the ER. It is also important that you take the antibiotics (doxycycline) as prescribed for 2 weeks. Take the medication with food. Wear sunscreen if going out in the sun as doxycycline can cause sunburns. Follow-up with your DRAFTING CLERK this week. A referral has been provided Return to the ER for worsening pain, fever, vomiting or if you have any changes in your symptoms. - Post Discharge Activity
[2020-02-24] MEDS ORDERED: AZITHROMYCIN 250 MG TABLET ONE (20:12)
[2020-02-24] MEDS ORDERED: LIDOCAINE HCL 1%, 10 MG/ML (20ML VIAL) ONE (20:12)
[2020-02-24] MEDS ORDERED: cefTRIAXone SODIUM 1 GM VIAL ONE (20:13)
[2020-02-24 20:52] VITALS: BP 131/70; PULSE 73; TEMP 97.8
== END 2020-02-24 20:52 | disposition home or self-care (01) ==
LOC: JER 17:32
DX: N73.9 Female pelvic inflammatory disease, unspecified (principal)
CPT/HCPCS: 36415; 76830-TC; 80053; 81003; 84702; 85025; 85610; 86850; 86900; 86901; 87070; 87086; 87205; 87491; 87591; 99284-25

== ENCOUNTER 2021-11-27 13:55 | Emergency (ER) | payer OTHER ==
[2021-11-27 14:17] VITALS: BP 137/81; PULSE 119; TEMP 98.8; BMI 36.6
[2021-11-27] MEDS ORDERED: DEXAMETHASONE LIQUID 0.5 MG/5 ML PO ONE (16:04)
[2021-11-27] MEDS ORDERED: DEXAMETHASONE SOD PHOSPHATE 10 MG/1 ML VIAL ONE ×2 (16:17→16:26)
[2021-11-28 12:08] LABS: SARS-CoV-2 NAA Not Detected (Not Detected)
== END 2021-11-27 16:30 | disposition home or self-care (01) ==
LOC: JER 13:55
DX: J01.90 Acute sinusitis, unspecified (principal); R07.0 Pain in throat
CPT/HCPCS: 71046-TC-FY; 87651; 87804; 99284-25; C9803-CS; U0003; U0005

== ENCOUNTER 2023-01-06 09:44 | Emergency (ER) | payer OTHER ==
[2023-01-06 09:50] VITALS: BP 120/66; PULSE 76; RESP 18; TEMP 98.4; BMI 36.6
[2023-01-06] MEDS ORDERED: ACETAMINOPHEN 500 MG TABLET (FP) PO ONE (10:11)
[2023-01-06] MEDS ORDERED: ACETAMINOPHEN 325 MG TABLET (FP) ONE (10:15)
[2023-01-06 10:30] LABS: HCG,QUALITATIVE URINE Positive; URINE APPEARANCE CLEAR; URINE BILIRUBIN NEGATIVE (NEGATIVE); URINE COLOR YELLOW; URINE GLUCOSE (UA) 2+ (NEGATIVE); URINE KETONE NEGATIVE (NEGATIVE); URINE LEUK ESTERASE NEGATIVE (NEGATIVE); URINE NITRITE NEGATIVE (NEGATIVE); URINE PROTEIN NEGATIVE (NEGATIVE); URINE UROBILINOGEN 0.2 mg/dL (0.2-1.0)
== END 2023-01-06 13:09 | disposition home or self-care (01) ==
LOC: JER 09:44
DX: O9A.211 Injury, poisoning and certain other consequences of external causes complicating pregnancy, first trimester (principal); R10.9 Unspecified abdominal pain; M54.50 Low back pain, unspecified; V49.40XA Driver injured in collision with unspecified motor vehicles in traffic accident, initial encounter; Z3A.09 9 weeks gestation of pregnancy
CPT/HCPCS: 76815-TC; 81003; 84703; 87086; 99284-25